=== PATIENT | male | born 1990 | race Hispanic/Latino ===

== ENCOUNTER 2024-09-21 08:25 | Emergency (ER) | payer OTHER ==
[~2024-09-21] VITALS: Ht 170.2 cm; Wt 82.6 kg
[2024-09-21] MEDS ORDERED: NAPR-1505 PO (09:20)
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
--- NOTE | 2024-09-21 09:29 | HMCIMG ---
HIP UNILAT 2-3VW RIGHT HISTORY: Status post fall COMPARISON: None TECHNIQUE: 3 images of right hip were obtained. FINDINGS: There is no acute displaced fracture or dislocation. Degenerative changes are seen. IMPRESSION: 1. Findings as described above.
--- NOTE | 2024-09-21 09:36 | HMCIMG ---
HAND 2+VWS RT LIMITED HISTORY: Status post fall COMPARISON: None TECHNIQUE: 2 images of right hand were obtained. FINDINGS: There is no acute displaced fracture or dislocation. Degenerative changes are seen. IMPRESSION: 1. Findings as described above.
--- NOTE | 2024-09-21 09:54 | HMCIMG ---
HAND 2+VWS LT LIMITED HISTORY: Status post fall COMPARISON: None TECHNIQUE: 2 images of left hand were obtained. FINDINGS: Radiocarpal joint space narrowing and interphalangeal joint space narrowing are seen. There is no acute displaced fracture or dislocation. Degenerative changes are seen. IMPRESSION: 1. Findings as described above.
[2024-09-21] MEDS: ORPHENADRINE 60MG/2ML IM ONE (10:17)
[2024-09-21] MEDS: ketOROlac 60 MG VIAL (30MG/ML) IM ONE (10:18)
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
[2024-09-21 10:45] VITALS: BP 153/62; PULSE 94; RESP 20; TEMP 98.7; O2SAT 99
== END 2024-09-21 10:51 | disposition home or self-care (01) ==
LOC: EDH 08:25
DX: S76.011A Strain of muscle, fascia and tendon of right hip, initial encounter (principal); S60.229A Contusion of unspecified hand, initial encounter; X58.XXXA Exposure to other specified factors, initial encounter; Y93.89 Activity, other specified; Y92.89 Other specified places as the place of occurrence of the external cause; Y99.8 Other external cause status
CPT/HCPCS: 99284; 73120 ×2; 73502; 96372 ×2; J1885; J2360

== ENCOUNTER 2024-11-24 07:52 | Emergency (ER) | payer SELFPAY ==
[~2024-11-24] VITALS: Ht 170.2 cm; Wt 82.6 kg
[~2024-11-24 07:52] MED LIST: NAPR-1505 PO
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
--- NOTE | 2024-11-24 08:21 | EKG ---
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
[2024-11-24] MEDS: hydrOXYzine 50MG VIAL 50 MG/ML VIAL IM STA (08:27)
[2024-11-24 08:28] LABS: BASOPHILS # (AUTO) 0.06 K/uL (0.00-0.20); BASOPHILS % (AUTO) 1.6 % (0.0-5.0); EOSINOPHILS # (AUTO) 0.22 K/uL (0.00-0.70); HEMATOCRIT 40.6 % (42-54); IMMATURE GRANULOCYTE ABSOLUTE 0.01 K/uL (0-1); LYMPHOCYTES # (AUTO) 1.1 K/uL (1.0-4.8); MEAN CORPUSCULAR HEMOGLOBIN 32.6 pg (27.0-33.0); MEAN CORPUSCULAR VOLUME 93.1 fL (79-99); MONOCYTES # (AUTO) 0.4 K/uL (0.1-1.0); MONOCYTES % (AUTO) 10.6 % (3.0-13.0); NEUTROPHILS # (AUTO) 1.9 K/uL (1.8-7.7); NEUTROPHILS % (AUTO) 50.5 % (40.0-77.0); PLATELET COUNT (AUTO) 152 K/uL (130-400); RED BLOOD CELL COUNT(AUTO) 4.36 MIL/uL (4.50-6.20); RED CELL DISTRIBUTION WIDTH 14.6 % (11.0-15.5); WHITE BLOOD COUNT (AUTO) 3.7 K/uL (4.8-10.8)
[2024-11-24 08:33] LABS: AMPHET/METH SCREEN,URINE NEGATIVE (NEGATIVE); BARBITURATE SCREEN, URINE NEGATIVE (NEGATIVE); BENZODIAZEPINES SCREEN,URINE NEGATIVE (NEGATIVE); CANNABINOID SCREEN,URINE NEGATIVE (NEGATIVE); COCAINE SCREEN,URINE NEGATIVE (NEGATIVE); OPIATE SCREEN,URINE NEGATIVE (NEGATIVE); PHENCYCLIDINE SCREEN,URINE NEGATIVE (NEGATIVE)
[2024-11-24 08:34] LABS: APPEARANCE,URINE CLEAR (CLEAR); BILIRUBIN,URINE NEGATIVE (NEGATIVE); COLOR,URINE LIGHT-YELLOW (YELLOW); GLUCOSE, URINE (UA) NEGATIVE (NEGATIVE); KETONES,URINE 40 mg/dL (NEGATIVE); LEUKOCYTE ESTERASE ,URINE NEGATIVE Leu/uL (NEGATIVE); NITRATE,URINE NEGATIVE (NEGATIVE); OCCULT BLOOD,URINE NEGATIVE (NEGATIVE); PH,URINE 6.5 (5.0-8.0); PROTEIN,URINE 10 mg/dL (NEGATIVE)
[2024-11-24 08:36] LABS: CREATININE 0.7 mg/dL (0.5-1.3); POTASSIUM 3.2 mmol/L (3.5-5.1)
[2024-11-24 08:36] LABS: ADD UA MICROSCOPIC YES
[2024-11-24 08:37] LABS: RBC,URINE 0-1 /HPF (0-1); SQUAMOUS EPITHELIAL CELL,UR RARE /HPF (0-2); WBC,URINE 0-1 /HPF (0-1)
[2024-11-24 08:48] LABS: INR 1.04 (0.85-1.15)
[2024-11-24 08:49] LABS: PARTIAL THROMBOPLASTIN TIME 32.3 SEC (26.3-35.5)
[2024-11-24] MEDS ORDERED: BUSP15 PO (08:56)
[2024-11-24 08:58] LABS: B-TYPE NATRIURETIC PEPTIDE 13 pg/mL (0-100)
[2024-11-24] MEDS ORDERED: LORA10TA7 PO (09:01)
[2024-11-24] MEDS ORDERED: AMOX1TAB16 PO (09:01)
[2024-11-24] MEDS ORDERED: FLUT16H NS (09:01)
[2024-11-24 09:14] VITALS: BP 136/87; PULSE 82; RESP 18; TEMP 98.1; O2SAT 100
--- NOTE | 2024-11-24 09:18 | HMCIMG ---
PORTABLE CHEST RADIOGRAPH INDICATION: cp COMPARISON: None FINDINGS: Heart size is normal. The pulmonary vascularity and shefali appear normal. No abnormal pulmonary parenchymal opacity or consolidation identified. No significant pleural effusion noted. No pneumothorax detected. IMPRESSION: No radiographic evidence for any acute cardiopulmonary process.
[2024-11-24] MEDS: dexaMETHasone SOD PHOSPHATE 4 MG/ML 1ML VIAL IM ONE (09:20)
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
== END 2024-11-24 09:27 | disposition home or self-care (01) ==
LOC: EDH 07:52
DX: F41.9 Anxiety disorder, unspecified (principal); J32.9 Chronic sinusitis, unspecified; I10 Essential (primary) hypertension; Z79.899 Other long term (current) drug therapy
CPT/HCPCS: 99285; 71045; 82550; 84484; 80048; 83880; 80305; 85025; 85610; 85730; 81001; 36415; 96372 ×2; 93005; J1100; J3410